=== PATIENT | male | born 1985 | race Caucasian/White ===

== ENCOUNTER 2022-08-22 12:27 | Emergency (ER) | payer MEDICAID ==
[~2022-08-22] VITALS: Ht 165.1 cm; Wt 132.0 kg
[2022-08-22 12:32] VITALS: BP 154/94
[2022-08-22] MEDS ORDERED: BENZONATATE 100MG CAPSULE PO ONE (14:45)
[2022-08-22] MEDS ORDERED: CEFTRIAXONE 1 G PREMIX 50 ML IV NR (15:00)
[2022-08-22] MEDS ORDERED: AZITHROMYCIN 500MG/250ML 250 ML IV NR (15:00)
[2022-08-22] MEDS ORDERED: SODIUM CHLORIDE 0.9% 1,000 ML IV ONE (15:00)
[2022-08-22 15:55] LABS: CHLORIDE 102 mEq/L (98-107)
[2022-08-22 15:59] LABS: BASOPHILS % 0.2 % (0.0-2.0); EOSINOPHILS % 0.2 % (0.0-5.0); HEMATOCRIT. 48.4 % (42.0-52.0); HEMOGLOBIN. 16.1 g/dL (14.0-18.0); LYMPHOCYTES % 12.7 % (20.0-50.0); MEAN CORPUSCULAR HEMOGLOBIN 28.9 pg (28.0-32.0); MEAN CORPUSCULAR VOLUME 87.1 fL (80.0-94.0); MONOCYTES % 14.1 % (2.0-8.0); NEUTROPHILS % 72.8 % (40.0-76.0); RED BLOOD CELL COUNT 5.56 mill/uL (4.7-6.1); RED CELL DISTRIBUTION WIDTH 14.2 % (11.6-14.6)
[2022-08-22] MEDS ORDERED: AZIT250T MT (16:15)
[2022-08-22] MEDS ORDERED: BENZ100C86 MT (16:15)
[2022-08-22 17:10] LABS: MEAN PLATELET VOLUME 9.6 fl (7.4-10.4); PLATELET 245 x1000/uL (130-400)
== END 2022-08-22 17:47 | disposition home or self-care (01) ==
LOC: ER 12:27
DX: J06.9 Acute upper respiratory infection, unspecified (principal); Z20.822 Contact with and (suspected) exposure to COVID-19; R03.0 Elevated blood-pressure reading, without diagnosis of hypertension; Z87.01 Personal history of pneumonia (recurrent)
CPT/HCPCS: 36415; 71045; 80053; 83605; 84145; 85025; 87040; 87426; 87804; 93005; 96365; 96368; 99285; C9803; J0456; J0696